=== PATIENT | male | born 1985 | race American Indian/Alaskan Native ===

== ENCOUNTER 2019-07-26 19:09 | Emergency (ER) | payer SELFPAY ==
[2019-07-26 19:30] VITALS: BP 183/92
--- NOTE | 2019-07-26 21:01 | XRay Report ---
Lumbosacral spine, 2 views INDICATION: Back pain following injury 2 days ago The vertebral body heights are intact with no compression fractures seen. There is slight disc space narrowing at L5-S1 with anterior spurring at L4-L5 and L5-S1. No spondylolisthesis is seen. No facet arthropathy identified. SI joints are grossly intact. No significant abnormality. Signer Name: Gil Styles MD Signed: 07/26/2019 8:56 PM Workstation Name: [id number]
--- NOTE | 2019-07-26 22:11 | Emergency Department Report ---
Chief Complaint: Back Pain/Injury Stated Complaint: BACK PAIN Time Seen by Provider: 07/26/19 22:05 - HPI History of Present Illness: 34-year-old -[place] male presents to the emergency room for lower back pain after lifting furniture 2 days. Patient denies any trauma no falls no direct blows. Patient is taking nothing for pain. - ROS Review of Systems: Back pain with no radiation to lower extremities. - Exam Vital Signs: Vital Signs 07/26/19 07/26/19 19:24 19:53 Temperature 98.8 F 98.8 F Pulse Rate 61 80 Respiratory 18 18 Rate Blood Pressure 183/92 183/92 O2 Sat by Pulse 99 100 Oximetry Physical Exam: Alert and oriented 3. No acute distress. Her spinal tenderness no vertebral tenderness negative straight leg exam MSE screening note: Focused history and physical exam performed. Due to findings the following was ordered: ED Medical Decision Making - Radiology Data Radiology results: report reviewed Patient: COLBY JOSÉ MR#: [id number] : 1985 Acct:[id number] Age/Sex: 34 / M ADM Date: 07/26/19 Loc: ED Attending Dr: Ordering Physician: SHANTELL MCCLAIN Date of Service: 07/26/19 Procedure(s): XR spine lumbosacral 2-3V Accession Number(s): [id number] cc: SHANTELL MCCLAIN Fluoro Time In Minutes: Lumbosacral spine, 2 views INDICATION: Back pain following injury 2 days ago The vertebral body heights are intact with no compression fractures seen. There is slight disc space narrowing at L5-S1 with anterior spurring at L4-L5 and L5-S1. No spondylolisthesis is seen. No facet arthropathy identified. SI joints are grossly intact. No significant abnormality. Signer Name: Gil Styles MD Signed: 07/26/2019 8:56 PM Workstation Name: [id number] Transcribed By: KENZIE Dictated By: Gil Styles MD Electronically Authenticated By: Gil Styles MD Signed Date/Time: 07/26/192055 DD/ 53 TD/TT: ED Disposition for MSE Is pt being admited?: No Does the pt Need Aspirin: No Condition: Stable
== END 2019-07-26 22:30 | disposition left against medical advice (07) ==
LOC: ED 19:09
DX: M54.5 Low back pain (principal)
CPT/HCPCS: 72100; 99283